=== PATIENT | female | born 1945 | race Caucasian/White ===

== ENCOUNTER 2016-11-21 05:22 | Inpatient (IN) | payer OTHER ==
[~2016-11-21] VITALS: Ht 152.4 cm; Wt 68.0 kg
[~2016-11-21 05:22] MED LIST: AMLODIPINE BESYL5 M1 PO; ASPIRIN EC81 M1 PO; FERROUS SULFAT325 M3 PO; GLIMEPIRIDE4 M1 PO; LISINOPRIL40 M1 PO; METFORMIN HCL500 M3; METOPROLOL TART25 M1 PO; PIOGLITAZONE HC30 M1 PO; PRAVACHOL40 M1 PO; VITAMIN D3400 UNI1 PO
--- NOTE | 2016-11-21 10:50 | RADIOLOGY REPORT ---
EXAMINATION: XR HIP, LEFT CLINICAL INFORMATION: Status post left total hip arthroplasty COMPARISON: None TECHNIQUE: Two views of the left hip. FINDINGS: Prosthesis is in place. Intact hardware. No evidence of periprosthetic abnormal lucency. Underlying bony osteopenia. Surgical enma outer aspect left thigh. Small amount of air within the soft tissues. IMPRESSION: Recent postoperative changes. No acute osseous abnormality.
--- NOTE | 2016-11-21 12:35 | NUR ---
NURSING NOTE: PATIENT SETTLED INTO BED FROM PACU; AT BEDSIDE. NO ACUTE DISTRESS. A&OX3, BS HYPOACTIVE X4, LS CLEAR BL ON 2L NC, +CMS BL, PATIENT REPORTS "0" PAIN AT THIS TIME BUT FEELING NAUSEOUS. MEDICATION OFFERED; PATIENT DENIED. IVF RUNNING @ 75, WILL CONTINUE TO MONITOR.
--- NOTE | 2016-11-21 12:58 | Operative Report ---
Operative/Inv Procedure Report Surgery Date: 11/21/16 Name of Procedure: Left total hip arthroplasty Pre-Operative Diagnosis: Left hip primary osteoarthritis Post-Operative Diagnosis: Same Estimated Blood Loss: 50ml to 100ml Surgeon/Music Theory Professor: DENIA DE LA FUENTE,Martin SAVAGE Anesthesia: general endotracheal tube Implants: Palisade cemented size 7 Opti-Fix Trident acetabulum size 54 36+5 femoral head Drains: None Specimens: Femoral head and acetabular reamings Microbiology: Urine Complications: None Condition: Stable Operative Indication: Patient is a 71-year-old woman with worsening bilateral hip pain. She was found to have severe end-stage degenerative changes of both hips. Due to severity of symptoms and interference with normal activities of daily living she wanted to proceed with total hip arthroplasty after risks, benefits and expectations were discussed. However, surgery had to be delayed because of insufficiency fracture of her left tibia and compression fracture of her lumbar spine. Once she cleared these 2 issues, she wished to proceed with total hip arthroplasty. Nonsurgical options were discussed as well but due to the severity of her symptoms and her radiographic findings she felt that she needed to proceed with surgical intervention. Patient was referred to [facility] treatment Operative/Procedure Note Note: Patient was brought to the operating room and transferred to the operating room table. Once under appropriate anesthesia the patient was placed in a right lateral decubitus position with left side up. All bony prominences were well- padded. The left lower extremity was prepped and draped in standard fashion. Preoperative IV antibiotics were given prophylactically. Due to patient's anatomy as well as her significant osteopenia/osteoporosis as well as the appearance of her femur it was apparent that she would likely need a cemented femoral stem and this was available for the surgical procedure. A standard incision was made along the lateral aspect of the hip for anticipated a superior approach of the hip. Incision was taken down sharply to the underlying fascia. Fascia was incised in line with the skin incision area the hip was internally rotated patient had significant contracture. The piriformis was identified and reflected posteriorly. The interval between the gluteus minimus tendon and superior capsule was identified and a retractor was placed in this interval. An inferior retractor was placed to identify the lower portion of the posterior capsule. I then made an incision reflecting the central portion of the posterior capsule posteriorly. This was tacked and reflected for later repair. Superior and inferior portions of the posterior capsule were excised. Hip was then dislocated. However prior to doing this we needed to remove a very large inferior neck and femoral head osteophyte was blocking dislocation and we also need to be careful due to patient's significant osteoporosis and previous history of insufficiency fractures. Once this osteophyte was removed able to dislocate the hip. Care was taken to carefully the soft tissues since it didn't appear to be somewhat friable as well as the bone which is mentioned earlier significantly osteopenic. Femoral neck cut was then made based on preoperative templating and intraoperative measurements. This is showed the acetabular fossa. There was severe degenerative changes of the acetabular fossa and severe end-stage degenerative changes and osteophyte formation of the femoral head. Retractors were placed to visualize the acetabular fossa. Any remaining soft tissue was removed from the acetabular fossa circumferentially. Patient even had intra-articular osteophyte formation at covered the entire fovea area and corresponding acetabular area. Reamers then used up to a size 53 for disc insertion of a size 54 acetabulum. I did a trial with a 52 acetabular shell to confirm circumferential reaming. I was satisfied with this. Opus irrigation followed. This was followed with insertion of the definitive size 54 acetabular shell, the anteversion and abduction based on patient's anatomy as well as preoperative templating. Excellent fixation of the cup. I then placed 2 screws in standard fashion drilling measuring and placing appropriate length screws in the safe zone. Opus irrigation 7 component followed. I then placed the definitive liner for [address] head [address]. The locking mechanism was confirmed. I then protected the acetabular liner with a lap sponge. I then turned my attention to the femur. Box osteotome was used to lateralize my insertion site. I then hand reamed up to a size 9. I broached to a size 9. Again the cortices were very thin there was a significant mismatch of the proximal femur and the shaft. I elected to proceed with a cemented stem. Once I did a trial reduction with a size 9 femoral stem which is a cemented size 7 I was satisfied with the stability. Hip was reduced with a size 36+0 femoral head. I then removed all trial components from the femur copious irrigation followed. I dried the femoral shaft. A cement sutures placed distally in standard fashion. Cement was being mixed on the back table. Once once the cement was ready I applied to the femoral shaft was dried and irrigated. I then placed the definitive size [address] Cement was allowed to harden after removing excess cement with curettes. A displaced the appropriate amount of anteversion on my trial broach. Once the cement was hardening motion compensated for the size 10 femoral stem which had a 30 mm neck while the trial 35 neck length. I use a +536 mm femoral head this was done after the trunnion was dried. The hip was reduced I was satisfied with the stability. No evidence of posterior instability with simultaneous internal rotation adduction and flexion to greater than 90. No evidence of posterior impingement with simultaneous extension and external rotation. I was satisfied the pentecostal of leg lengths. Copious irrigation followed. Every level of closure was followed by copious irrigation. The posterior capsule and piriformis were repaired in standard fashion. Fascia was closed with interrupted #1 Vicryl sutures. Subcutaneous tissues closed in 2 layers with 2-0 Vicryl and skin was closed with enma. Appropriate dressings were applied and patient was awakened and taken to recovery room in good condition. No intraoperative complications. Blood loss was approximately 100cc. Discharge Disposition: PACU
[2016-11-21 13:00] VITALS: BP 128/66
[2016-11-21] MEDS ORDERED: COUMADIN5 M2 PO (13:03)
[2016-11-21] MEDS ORDERED: PERCOCET 5-3251 EACH PO (13:04)
--- NOTE | 2016-11-21 13:10 | Patient Discharge Instructions ---
Discharge Instructions General Discharge Information You were seen/treated for: Left hip pain You had these procedures: Left total hip replacement Watch for these problems: Increasing pain, redness, warmth, swelling. Drainage of any type from incision. Inability to bear weight on left leg. Fever greater than 101.5. Do not soak the wound: Yes No bath, but you may shower: Yes Other wound care: Keep wound clean and dry Special Instructions: You are taking a blood thinning medication called Coumadin. Another name for this medication is warfarin. The dose of this medication is subject to change on a daily basis. It is based on lab work called INR. Your INR will be checked daily in the beginning, and when it reaches a stable point it will be checked again 2-3 times per week. The dose of your Coumadin will be adjusted by Janak Pope MD. Please await specific instructions from Janak Pope MD's office prior to taking this medication daily. Diet Continue normal diet: Yes Recommended Diet: Heart Healthy Additional DIET Information: Advance as tolerated Activity Full Activity/No Limits: No Activity Self Limited: Yes Pounds, do NOT lift more than: 10 Activity Limited to: Weight bear as tolerated Additional ACTIVITY Info: No bending at the waist greater than 90. Do not cross your left leg over your right leg. Please avoid bending and internally rotating your left leg. Please sleep with abduction pillow in between your legs unless otherwise indicated by Janak Pope MD. Acute Coronary Syndrome Inclusion Criteria At DC or during hospital stay patient has or had the following: ACS DIAGNOSIS No Discharge Core Measures Meds if any: Prescribed or Continued at Discharge Meds if any: NOT Prescribed or Continued at Discharge Congestive Heart Failure Inclusion Criteria At DC or during hospital stay patient has or had the following: CHF DIAGNOSIS No Discharge Core Measures Meds if any: Prescribed or Continued at Discharge Meds if any: NOT Prescribed or Continued at Discharge Cerebrovascular accident Inclusion Criteria At DC or during hospital stay patient has or had the following: CVA/TIA Diagnosis No Discharge Core Measures Meds if any: Prescribed or Continued at Discharge Meds if any: NOT Prescribed or Continued at Discharge Venous thromboembolism Inclusion Criteria VTE Diagnosis No VTE Type NONE VTE Confirmed by (Test) NONE Discharge Core Measures - Per Current guidelines, there needs to be overlap - treatment for the first 5 days of Warfarin therapy. - If discharged on Warfarin prior to 5 days of - overlap therapy, the patient will need to be - assessed for post discharge needs including - *Post discharge parental anticoagulation - *Warfarin and/or parental anticoagulation education - *Follow up date to check INR post discharge At least 5 days overlap therapy as Inpatient Yes Meds if any: Prescribed or Continued at Discharge Note: Overlap Therapy is Warfarin and Anticoagulant Meds if any: NOT Prescribed or Continued at Discharge
--- NOTE | 2016-11-21 13:12 | Surgical Discharge Summary ---
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 Home Who Do You Live With? Spouse Services at Home: None What is Your Primary Language? Occitan Review of Systems: See H&P Hospital Course Course Attending Physician: DENIA DE LA FUENTE,JANAK Primary Care Physician: SIMEON PRADO Hospital Course: Patient was admitted to the hospital on 11/21/2016 for an elective left total hip replacement. She tolerated the procedure well. She was transferred to a general surgical floor. Her diet was advanced and tolerated. Her vital signs were stable and within normal limits. She voided spontaneously. Her pain was well controlled with the use of oral pain medications. She sustained a mechanical fall on 11/22/2016, her foot was caught on her rolling walker, she did not sustain head trauma nor was there any evidence of a syncopal event preceding the fall. Radiographs were immediately obtained and were negative for fracture or dislocation. She was evaluated and treated by physical therapy. She was deemed appropriate for discharge to short term rehab facility. Allergies: Coded Allergies: NO KNOWN ALLERGIES (11/11/16) Disposition Summary Disposition Principal Diagnosis: Left hip unilateral primary osteoarthritis Additional Diagnosis: None Discharge Disposition: SNF Discharge Instructions General Discharge Information Code Status: Full Code Patient's Diet: Heart healthy, advance as tolerated Patient's Activity: Weight-bear as tolerated on left leg Follow-Up Instructions/Appts: Please contact Janak Pope MD's office to arrange and/or confirm your follow-up appointment. Medications at Discharge Discharge Medications: Stop taking the following medications: Aspirin (Ecotrin*) 81 MG TABLET.DR ORAL DAILY Continue taking these medications: Amlodipine Besylate (Amlodipine Besylate) 5 MG TABLET 1 Tablet ORAL DAILY Pravastatin Sodium (Pravachol) 40 MG TABLET 1 Tablet ORAL DAILY Metformin HCl (Metformin HCl) 500 MG TABLET Instructions: 3 TABS IN THE AM .. 1 TAB IN THE PM Metoprolol Tartrate (Metoprolol Tartrate) 25 MG TABLET 1 Tablet ORAL TWICE DAILY Glimepiride (Glimepiride) 4 MG TABLET 1 Tablet ORAL TWICE DAILY Lisinopril (Lisinopril) 40 MG TABLET 1 Tablet ORAL DAILY Pioglitazone HCl (Pioglitazone HCl) 30 MG TABLET 1 Tablet ORAL DAILY Ferrous Sulfate (Ferrous Sulfate) 325 MG (65 MG IRON) TABLET 1 Tablet ORAL DAILY Cholecalciferol (Vitamin D3) (Vitamin D3) 400 UNIT TABLET 1,000 International Unit ORAL DAILY Start taking the following new medications: Warfarin Sodium (Coumadin) 5 MG TABLET 1 Tablet ORAL DAILY Qty = 30 No Refills Oxycodone HCl/Acetaminophen (Percocet 5-325 MG Tablet) 5 MG-325 MG TABLET 1-2 Tablet ORAL EVERY 4-6 HOURS as needed for pain Qty = 36 No Refills
--- NOTE | 2016-11-21 13:15 | PN- Orthopedic ---
Subjective Subjective: The patient was seen this afternoon postoperatively. She reports that her pain is under adequate control however she has complaints of some mild nausea and a sore throat. She had no other complaints the current time and denies any chest pain or difficulty breathing. Objective Vital Signs and I&Os AF/VSS I's and O's: 2600 ML's in of lactated Ringer's/850 ML's out of urine via Dunne catheter/EBL 200 ML's Physical Exam: Gen.: Alert and in no obvious distress Skin: Warm and dry Cardiac: S1 and S2 regular Pulmonary: Bilateral breath sounds are equal and decreased at bases Extremities: Bilateral lower extremities are warm without calf tenderness or significant edema. Gross motor and sensory are intact. Left hip dressing is clean, dry, and intact. Assessment/Plan Assessment/Plan Assessment: 71 a female status post left total hip arthroplasty. Postoperative the patient is progressing as expected and her pain is under adequate control. Plan: Out of bed with physical therapy patient is weightbearing as tolerated Continue IV fluids and hydration until the morning Strict I's and O's Continue current pain regiment Resume home medications 2 doses of postoperative prophylactic antibiotics GI and DVT prophylaxis First dose of Coumadin to start tonight Follow-up morning laboratory studies and dose Coumadin for an INR between 2 and 3 PRN antiemetics and antipyretics Core Measures/Miscellaneous Dunne Catheter Date In: 11/21/16 Still Needed? Yes Venous Thromboembolism VTE Risk Factors: Age > 40, Surgery VTE Contraindications: No Contraindications VTE Diagnosis: No Beta Destiney Is Beta Destiney a Home Med? No Antibiotics Is Patient on Antibiotics? Yes If Yes: prophylaxis
[2016-11-21 15:17] VITALS: BP 122/76
[2016-11-21 17:12] VITALS: BP 142/70
[2016-11-21 21:10] VITALS: BP 155/80
[2016-11-22] VITALS (7 sets, daily range): BP systolic 88–220; BP diastolic 38–70
--- NOTE | 2016-11-22 07:38 | PN- Orthopedic ---
See Addendum Subjective Subjective: 71-year-old female status post left total hip arthroplasty postop day 1. She has no pain in the left hip. Minimal pain medication, 1 Percocet this morning. Dunne catheter was removed this morning patient has yet to void. She was able to stand yesterday with physical therapy. She denies any chest pain shortness of breath palpitations abdominal pain nausea or vomiting. Objective Vital Signs and I&Os Laboratory Tests 11/22 06 Chemistry Sodium Pending Potassium Pending Chloride Pending Carbon Dioxide Pending Anion Gap Pending BUN Pending Creatinine Pending BUN/Creatinine Ratio Pending Coagulation PT Pending INR Pending Hematology CBC w Diff Pending WBC Pending RBC Pending Hgb Pending Hct Pending MCV Pending MCH Pending RDW Pending Plt Count Pending MPV Pending PUBS MCHC Pending Vital Signs Date Time Temp Pulse Resp B/P Pulse O2 O2 Flow FiO2 Ox Delivery Rate 11/22 0613 98.7 84 20 128/68 95 Room Air 11/21 2133 103 155/80 11/21 2110 98.4 103 20 155/80 99 Room Air 11/21 1712 97.5 75 19 142/70 98 11/21 1600 00 Nasal 2.0L Cannula 11/21 1517 97.6 69 20 122/76 100 Nasal 2.0L Cannula 11/21 1300 94.2 68 16 128/66 98 Nasal 2.0L Cannula 11/21 1235 98 Nasal 2.0L Cannula Intake & Output 11/22 0800 11/22 0000 11/21 1600 11/21 0800 11/21 0000 11/20 1600 Intake Total 900 1300 2885 Output Total 220 491 5774 Balance 141 346 9271 Intake, IV 978 893 9251 Intake, Oral 300 600 240 Number 0 Bowel Movements Output, 300 Emesis Output, Urine 531 396 9165 Patient 150 lb Weight Physical Exam: Well-developed well-nourished no apparent distress. HEENT: Atraumatic, extraocular motion intact Neck: Supple, no lymphadenopathy Respiratory: No respiratory distress Extremities: No edema Left lower extremity hip dressing in place, Dressing clean dry and intact -no blood staining Mild thigh edema No signs of infection. No shortening or rotation-abduction pillow in place Hip range of motion is limited and without unexpected pain Neurovascularly intact distally Bilateral calves are supple, nontender. Neuro: Alert and oriented x3 Psych: Mood affect normal, normal memory normal judgment. Skin: Warm and dry, no rash on exposed skin Assessment/Plan Assessment/Plan 71 a female postop day #1 status post left total hip arthroplasty. Postoperative the patient is progressing as expected and her pain is under adequate control. Plan: Out of bed with physical therapy patient is weightbearing as tolerated Continue current pain regiment GI and DVT prophylaxis Awaiting results of INR this morning, adjust Coumadin dose accordingly Follow-up morning laboratory studies Patient has yet to void after Dunne catheter removed this morning. We'll monitor. Core Measures/Miscellaneous Dunne Catheter Date In: 11/21/16 Venous Thromboembolism VTE Risk Factors: Age > 40, Surgery VTE Contraindications: No Contraindications VTE Diagnosis: No Beta Destiney Is Beta Destiney a Home Med? No Antibiotics Is Patient on Antibiotics? Yes If Yes: prophylaxis
[2016-11-22 08:03] LABS: ABSOLUTE BASOPHIL COUNT 0 /CUMM (0.0-0.2); ABSOLUTE EOSINOPHIL COUNT 0 /CUMM (0.0-0.7); ABSOLUTE GRANULOCYTE CT 6.8 /CUMM (1.4-6.5); ABSOLUTE LYMPH COUNT 1.5 /CUMM (1.2-3.4); ABSOLUTE MONOCYTE COUNT 0.9 /CUMM (0.10-0.60); BASOPHIL % 0.2 % (0.0-2.0); EOSINOPHIL % 0 % (0-5); GRANULOCYTE % 73.4 % (42.2-75.2); HEMATOCRIT 28.6 % (37-47); MEAN CORPUSCULAR HGB 30.2 PG (27.0-31.0); MEAN CORPUSCULAR HGB CONC 33.1 G/DL (33.0-37.0); MEAN CORPUSCULAR VOLUME 91.3 FL (81.0-99.0); MEAN PLATELET VOLUME 9.4 FL (7.4-10.4); PLATELET COUNT 189 /CUMM (130-400); RBC DISTRIBUTION WIDTH 14.9 % (11.5-14.5); RED BLOOD CELL CT 3.13 /CUMM (4.20-5.40); WHITE BLOOD CELL COUNT 9.3 /CUMM (4.8-10.8)
[2016-11-22 08:21] LABS: PT 15.3 SEC (9.4-12.5)
--- NOTE | 2016-11-22 17:43 | Event Note ---
Event Note Event Note: A rapid response was called after patient sustained a fall. Per RN patient was attempting to use the bedside commode and was rotating when her walker got caught on the bed and caused her to fall onto her left hip. Patient did not hit her head per patient and RN. Patient states that she has some mild pain in her left hip. Otherwise no c/o. No change in pain with active ROM. Patient states the only thing bothering her is that she is embarrassed of the situation. BP: (170/70) HR: 105 RR: 20 SPO2: 97% on RA Gen: A&Ox3, comfortable, NAD, smiling and follow commands Chest: NRD, breathing comfortably on RA Ext: No gross LLE deformity noted. Left hip dressing C/D/I. Left thigh mildly swollen, compartments soft. No calve swelling/TTP. N/V intact BLE. Patient appears stable post fall. Will obtain left hip films to assess prosthesis and to r/o fx or dislocation. Monitor BP. Patient to await getting OOB until hip xrays are read. Will d/w attending.
--- NOTE | 2016-11-22 17:58 | NUR ---
AT AROUND 1715 THE PATIANT HAD AN UNWITNESSED FALL. PATIENT WAS OVERHEARD SAYING, "I FELL." PATIENT HAD ATTEMPTED TO GET FROM THE COMMODE TO THE BED BY HERSELF AND THE WALKER BECAME TANGLED IN THE ALPS. PATIENT FELL ONTO HER LEFT SIDE AND DID NOT HIT HER HEAD. RAPID RESPONSE CALLED. TEAM AT BEDSIDE. PATIENT WAS ASSISTED BACK INTO BED BY DR. PETERSON AND RAPID RESPONSE TEAM. A/O X3. B/P 220/70, HR 130, RR 18, 97% ON RA. BLOOD SUGAR 214. PT DENIES ANY PAIN. ABLE TO GET BACK TO BED WITH ASSIST X 2. B/P RECHECKED AT 1730 AND WAS 170/70, HR 118. NO C/O PAIN. PT CONVERSATING IN BED AND HAVING DINNER. BED ALARM IN PLACE. BLOOD PRESSURE RECHECKED AT 1745 AND WAS 160/70, HR 108-110. PT DENIES ANY COMPLAINTS. PER DR. CIELO FREIRE, XRAYS TO BE ORDERED. NO NEED FOR ANY CT SCANS OR FURTHER TESTING. DSG TO LEFT HIP INTACT. CIELO WOO AND DR. CLEANING AT BEDSIDE DURING RAPID RESPONSE. PT UPDATED ON POC. WILL CONTINUE TO MONITOR. PT LEFT FLOOR FOR XRAY AT 1800.
--- NOTE | 2016-11-22 18:49 | RADIOLOGY REPORT ---
EXAMINATION: XR HIP, LEFT CLINICAL INFORMATION: Postop day 1 status post total left hip arthroplasty. Fall. COMPARISON: 11/21/2016. TECHNIQUE: Two views of the left hip. FINDINGS: There is a total left hip arthroplasty. The femoral head component articulates appropriately with the acetabular component. No periprosthetic lucency or fracture. Alignment is anatomic. Overlying skin enma are present. Soft tissue gas is present postoperatively. IMPRESSION: Total left hip arthroplasty in typical positioning and alignment. No acute fracture or evidence of failure.
--- NOTE | 2016-11-23 07:21 | PN- Orthopedic ---
See Addendum Subjective Subjective: POD#2 S/P LEFT PEARL NO COMPLAINTS THIS AM AFTER FALL YESTERDAY XRAY OF LET HIP IN GOOD POSITION DENIES CP, SOB, NO N+V WITH DIET Objective Vital Signs and I&Os Vital Signs Date Time Temp Pulse Resp B/P Pulse O2 O2 Flow FiO2 Ox Delivery Rate 11/222 99.7 106 20 142/38 93 Room Air 11/22 2103 160/70 11/22 1745 108 18 160/70 95 Room Air 11/22 1730 118 20 170/70 95 Room Air 11/22 1715 130 18 220/70 11/22 1715 130 18 220/70 97 Room Air 11/22 1431 98.1 85 20 88/46 98 Room Air 11/22 1040 Room Air 2.0L 11/22 1000 98.4 80 20 120/64 94 Room Air 11/22 0833 84 128/68 11/22 0832 84 128/68 11/22 0829 84 128/68 Intake & Output 11/23 0800 11/23 0000 11/22 1600 11/22 0800 11/22 0000 11/21 1600 Intake Total 098 534 0252 2885 Output Total 300 760 261 0308 Balance -150 381 185 3735 Intake, IV 346 378 9157 Intake, Oral 150 300 600 240 Number 0 Bowel Movements Output, 300 Emesis Output, Urine 300 374 827 8553 Patient 150 lb Weight Physical Exam: CV: RRR LUNGS; CLEAR ABD: +BS, SOFT EXT: DRSG CHANGED WOUND C/D/I THIGH SOFT DISTAL CMS INTACT NO CALF TENDERNESS BIALT PASSIVE ROM LEFT HIP WITHOUT PAIN Assessment/Plan Assessment/Plan ORTHO STABLE PLAN RESUME OOB WITH PT THIS AM TITRATE COUMADIN FOR INR 2-3 BOWEL REGIME PLAN FOR SNF TOMORROW Core Measures/Miscellaneous Dunne Catheter Date In: 11/21/16 Venous Thromboembolism VTE Risk Factors: Age > 40, Surgery VTE Contraindications: No Contraindications VTE Diagnosis: No Beta Destiney Is Beta Destiney a Home Med? No Antibiotics Is Patient on Antibiotics? Yes If Yes: prophylaxis
[2016-11-23 07:58] VITALS: BP 144/58
[2016-11-23 07:59] LABS: ABSOLUTE BASOPHIL COUNT 0 /CUMM (0.0-0.2); ABSOLUTE EOSINOPHIL COUNT 0 /CUMM (0.0-0.7); ABSOLUTE GRANULOCYTE CT 5.7 /CUMM (1.4-6.5); ABSOLUTE LYMPH COUNT 1.8 /CUMM (1.2-3.4); BASOPHIL % 0.2 % (0.0-2.0); EOSINOPHIL % 0 % (0-5); GRANULOCYTE % 66.6 % (42.2-75.2); HEMATOCRIT 25.8 % (37-47); MEAN CORPUSCULAR HGB 30.6 PG (27.0-31.0); MEAN CORPUSCULAR HGB CONC 33.4 G/DL (33.0-37.0); MEAN CORPUSCULAR VOLUME 91.6 FL (81.0-99.0); MEAN PLATELET VOLUME 9.5 FL (7.4-10.4); PLATELET COUNT 159 /CUMM (130-400); RED BLOOD CELL CT 2.81 /CUMM (4.20-5.40); WHITE BLOOD CELL COUNT 8.5 /CUMM (4.8-10.8)
[2016-11-23 08:27] LABS: PT 16.7 SEC (9.4-12.5)
[2016-11-23 14:25] VITALS: BP 134/60
[2016-11-23 23:28] VITALS: BP 120/76; BP 130/60; BP 20/76
[2016-11-24 07:33] VITALS: BP 127/69
[2016-11-24 07:46] LABS: ABSOLUTE BASOPHIL COUNT 0 /CUMM (0.0-0.2); ABSOLUTE EOSINOPHIL COUNT 0 /CUMM (0.0-0.7); ABSOLUTE GRANULOCYTE CT 5.7 /CUMM (1.4-6.5); ABSOLUTE LYMPH COUNT 1.9 /CUMM (1.2-3.4); ABSOLUTE MONOCYTE COUNT 0.7 /CUMM (0.10-0.60); BASOPHIL % 0.3 % (0.0-2.0); EOSINOPHIL % 0.2 % (0-5); GRANULOCYTE % 67.9 % (42.2-75.2); HEMATOCRIT 26.3 % (37-47); MEAN CORPUSCULAR HGB 30.5 PG (27.0-31.0); MEAN CORPUSCULAR HGB CONC 33.2 G/DL (33.0-37.0); MEAN CORPUSCULAR VOLUME 92.1 FL (81.0-99.0); MEAN PLATELET VOLUME 9.1 FL (7.4-10.4); PLATELET COUNT 170 /CUMM (130-400); RBC DISTRIBUTION WIDTH 14.8 % (11.5-14.5); RED BLOOD CELL CT 2.85 /CUMM (4.20-5.40); WHITE BLOOD CELL COUNT 8.4 /CUMM (4.8-10.8)
[2016-11-24 08:24] LABS: PT 19.5 SEC (9.4-12.5)
--- NOTE | 2016-11-24 09:27 | PN- Orthopedic ---
Subjective Subjective: Pt. was eating breakfast when seen. She stated she has minimal pain, took Tylenol last night. States that did well with PT yesterday Objective Vital Signs and I&Os Vital Signs Date Time Temp Pulse Resp B/P Pulse O2 O2 Flow FiO2 Ox Delivery Rate 11/24 0733 98.5 73 20 127/69 96 Room Air 11/23 2328 98.6 78 18 130/60 96 Room Air 11/23 2251 130/58 11/23 1425 98.3 82 20 134/60 97 Room Air Intake & Output 11/24 1600 11/24 0800 11/24 0000 11/23 1600 11/23 0800 11/23 0000 Intake Total 226 313 9560 200 150 Output Total 100 800 300 Balance 120 240 200 200 -150 Intake, Oral 972 479 4491 200 150 Output, Urine 100 800 300 Alert, oriented, appropriate, no distress. Cor regular Lungs clear Abdomen benign L Hip dressing is clean, dry. Good sensation to hip area and distal lower extremity Foot warm, well perfused, no calf tenderness. Assessment/Plan Assessment/Plan s/p L THR for OA POD#3 complicated by fall without sequelae, hip in good position by XR Pt. has been stable Incision without infection Evaluated by PT yesterday, did well with walker Electrolytes are unremarkable. Anemia as expected due to periop loss without signs of bleeding. Anticipate d/c to rehab today on Coumadin Core Measures/Miscellaneous Dunne Catheter Date In: 11/21/16 Venous Thromboembolism VTE Risk Factors: Age > 40, Surgery VTE Contraindications: No Contraindications VTE Diagnosis: No Beta Destiney Is Beta Destiney a Home Med? No Antibiotics Is Patient on Antibiotics? Yes If Yes: prophylaxis
[2016-11-24 14:06] VITALS: BP 128/70
[2016-11-24 14:18] VITALS: BP 128/70
== END 2016-11-24 14:35 | DRG 470 ==
LOC: ENRESERVTM → ENRESERVDT → ENPENDDIS 05:22 → SDA 05:22 → 2NB 05:22
PROVIDERS: Physician Assistant; Physician Assistant Surgical; ADMIT Orthopaedic Surgery
PROC: 0SRB049 Replacement of Left Hip Joint with Ceramic on Polyethylene Synthetic Substitute, Cemented, Open Approach (ICD-10-PCS; principal; 2016-11-21)
DX: M16.12 Unilateral primary osteoarthritis, left hip (principal); E11.9 Type 2 diabetes mellitus without complications; I10 Essential (primary) hypertension; N39.3 Stress incontinence (female) (male); E78.5 Hyperlipidemia, unspecified
CPT/HCPCS: 2NBSP; 36415; 73501; 73502-LT; 82436; 87086; 88304; 97110-GO; 97116-GO; 97161-GP; 97530-GO; J0131; J1100; J1815; J2405; J3370; J7060